=== PATIENT | male | born 1985 | race African-American/Black ===

== ENCOUNTER 2021-05-03 06:52 | Inpatient (IN) | payer OTHER ==
[2021-05-03] VITALS (8 sets, daily range): BP systolic 124–170; BP diastolic 72–91
[~2021-05-03] VITALS: Ht 167.6 cm; Wt 68.0 kg
--- NOTE | 2021-05-03 12:25 | NUR ---
PT ARRIVED TO MED/SURG ROOM 272 IN STABLE CONDITION VIA HOSPITAL BED ACCOMPANIED BY X2 GUARDS AND OR STAFF;BEDSIDE REPORT RECEIVED FROM MASON PERKINS;PT POST OP BILATERAL INGUINAL HERNIA REPAIR 05/03/21.PT A&O X3, ORIENTED TO ROOM AND CALL LIGHT SYSTEM;PT REPORTS ABDOMIAL PAIN RATING 10/10 ON THE PAIN SCALE, PAIN SCALE AND REPORTING EDUCATED.PT TO BE MEDICATED PER EMAR ORDERS;ASSESSMENT COMPLETED;RESPIRATIONS EVEN AND UNLABORED ON O2 @ 2L VIA NC-PT IS NOT HOME DEPENDENT;CLEAR LUNG SOUNDS;I.S. PROVIDED AND PT EDUCATED ON USE, ENCOURAGED USE 10X PER HOUR;ABDOMEN SOFT ON PALPATION AND HYPOACTIVE IN ALL 4 QUADRANTS;DRESSING TO LEFT QUADRANT CDI WITH JEFF DRAIN NOTED, DRAIN EMPTIED OF 40CC OF BLOODY DRAINAGE;DERMABOND INTACT TO RIGHT ABDOMEN;COOK CATHETER PATENT DRAINING PINK URINE TO GRAVITY WITH EASE, STAT LOCK RIGHT THIGH;STRONG PEDAL PULSES,SCD'S PLACED AT THIS TIME;#20G TO RAC INFUSING D5 1/2 NS WITH EASE PER ORDER,SITE APPEARS HEALTHY;FALL AND ALLERGY BAND NOTED TO RIGHT ARM;PT ENCOURAGED TO CALL FOR ASSISTANCE IF NEEDED;FALL PRECAUTIONS IN PLACE WITH BED IN THE LOWEST POSITION AND CALL LIGHT IN REACH;WILL CONTINUE TO MONITOR
--- NOTE | 2021-05-03 13:30 | NUR ---
PT MEDICATED WITH PRN DILAUDID 1MG SLOW IVP FOR ABDOMINAL PAIN RATING 10/10 ON THE PAIN SCALE,WILL CONTINUE TO MONITOR FOR EFFECTIVENESS
--- NOTE | 2021-05-03 15:15 | NUR ---
PT RESTING IN SEMI FOWLERS POSITION WITH X2 GUARDS AT BEDSIDE AND ANKLES SHACKLED TO BED;RESPIRATIONS REMAIN EVEN AND UNLABORED ON O2 @ 2L VIA NC;PT DENIES ANY CURRENT NEEDS;WATER PROVIDED;DRESSING TO LEFT ABDOMEN CDI AND JEFF DRAIN EMPTIED OF 50CC OF BLOODY DRAINAGE;IV SITE PATENT INFUSING D5 1/2 NS WITH EASE PER ORDER;COOK CATHETER DRAINING TO GRAVITY WITH EASE;ENCOURAGED TO CALL FOR ASSISTANCE IF NEEDED;CALL LIGHT IN REACH;WILL CONTINUE TO MONITOR
--- NOTE | 2021-05-03 20:10 | NUR ---
PATIENT IN BED, SEMI FOWLERS POSITION. CURRENTLY ON ROOM AIR. O2 AVAILABLE PRN IF NEEDED. HR REGULAR. VAD @20 RAC INFUSING IVF ORDERED. C/O LOWER ABDOMINAL PAIN ADDRESSED WITH PRN AND SCHEDULED PAIN MEDICATION WITH POSITIVE EFFECT. COOK CATHETER IN PLACE DRAINING PINKISH RED URINE TO GRAVITY. JEFF DRAIN TO LLQ D/T S/P BILATERAL INGUINAL HERNIA REPAIR. SANGUENOUS FLUID 50CC EMPTIED. DRESSING TO LOWER ABDOMEN CLEAN DRY AND INTACT. DERMABOND TO OTHER INCISION AREA INTACT. 2 GUARDS AT BEDSIDE D/T PATIENT FROM D[facility]. RIGHT ANKLE SHAKLED TO BED. BED IN LOW POSITION. CALL LIGHT WITHIN REACH.
--- NOTE | 2021-05-04 00:20 | NUR ---
PATIENT RESTING IN BED. C/O PAIN ADDRESSED WITH PRN AND SCHEDULED PAIN MEDICATION WITH POSITIVE EFFECT. 50 CC OUT SANGUENOUS FLUID FROM JEFF DRAIN. BED IN LOW POSITION. CALL LIGHT WITHIN REACH.
[2021-05-04 00:30] VITALS: BP 115/66
--- NOTE | 2021-05-04 04:30 | NUR ---
RESTING QUIETLY IN BED. 55CC SANGUENOUS FLUID OUT FROM JEFF DRAIN.
[2021-05-04 05:01] VITALS: BP 129/79
[2021-05-04 05:03] LABS: ALBUMIN 3.2 g/dL (3.2-5.0); ALKALINE PHOSPHATASE 40 u/l (38-126); ANION GAP 9 (6-22 (CALC)); BILIRUBIN, TOTAL 0.6 mg/dL (0.0-1.4); BUN 12 mg/dL (9-20); BUN/CREATININE RATIO 11 (12-20 (CALC)); CARBON DIOXIDE 28 mmol/l (22-30); CHLORIDE 102 mmol/l (95-108); CREATININE 1.2 mg/dL (0.7-1.3); GFR > 60 ML/MIN (>=60 (CALC)); GFR FOR AFR.AMER. > 60 ML/MIN (>=60 (CALC)); SGOT/AST 26 u/l (17-59); SODIUM 135 mmol/l (137-146); TOTAL PROTEIN 5.9 g/dL (6.3-8.2)
[2021-05-04 07:18] VITALS: BP 125/72
--- NOTE | 2021-05-04 08:00 | NUR ---
PT IN BED WHEN ENTERED ROOM. TWO GUARDS AT BEDSIDE. PT IS ALERT AND ORIENTED. VITALS AND ASSESSMENT COMPLETED. S1 AND S2 HEARD. LUNG SOUNDS CLEAR. BOWEL SOUNDS ACTIVE IN ALL 4 QUADRANTS. PEDAL PULSES EQUALLY STRONG BILATERALLY. COOK CATHETER DRAINING VIA GRAVITY. JEFF DRAIN INTACT AND SUCTIONING. IV PATENT AND HEALTHY. NO DISTRESS NOTED. CALL LIGHT WITHIN REACH.
--- NOTE | 2021-05-04 08:59 | NUR ---
DR HARRIS AT BEDSIDE DISCUSSING POC
[2021-05-04 11:09] VITALS: BP 124/74
--- NOTE | 2021-05-04 12:00 | NUR ---
PT LAYING IN BED. GUARDS X2 IN ROOM. NO DISTRESS NOTED. CALL LIGHT WITHIN REACH.
--- NOTE | 2021-05-04 14:39 | NUR ---
PT IN BED WHEN ENTERED ROOM. TWO GUARDS IN ROOM WITH PT. PT IS ALERT AND ORIENTED. S1 AND S2 HEARD. LUNGS CLEAR. BOWEL SOUNDS ACTIVE IN ALL 4 QUADRANTS. COOK DRAINING VIA GRAVITY. PEDAL PULSES EQUALLY STRONG BILATERALLY. IV PATENT AND HEALTHY. NO DISTRESS NOTED. CALL LIGHT WITHIN REACH.
[2021-05-04 14:55] VITALS: BP 121/73
--- NOTE | 2021-05-04 16:00 | NUR ---
PT LAYING IN BED. GUARDS X2 IN ROOM. NO DISTRESS NOTED. CALL LIGHT WITHIN REACH.
[2021-05-04 19:00] VITALS: BP 123/71
--- NOTE | 2021-05-04 21:00 | NUR ---
PATIENT IS ALERT AND ORIENTED X3. ABLE TO MAKE NEEDS KNOWN. RESPIRATIONS EVEN AND UNLABORED. PATIENT REPORTS BETIRED. HR REGULAR. BS HYPOACTIVE X4. DRESSING TO LEFT LOWER ABDOMEN. DERMABOND SITES INTACT. JEFF DRAIN TO LEFT ABD WITH SMALL AMOUNT OF SEROSANGUENOUSFLUID NOTED. COOK CATHETER DRAINING RED COLORED URINE TO GRAVITY. VAD #20 RAC INFUSING D5 1/2 NS @ 125 ML/HR. C/O PAIN ADDRESSED WITH SCHEDULED AND PRN PAIN MEDICATION WITH POSITIVE EFFECT. PEDAL PULSES +2 B/L. 2 GUARDS AT BEDSIDE. RIGHT ANKLE SHACKLED TO THE BED. BED IN LOW POSITION. CALL LIGHT WITHIN REACH.
--- NOTE | 2021-05-05 02:03 | NUR ---
RESTING WITH EYES CLOSED. RESPIRATIONS SLOW AND REGULAR. GUARDS AT BEDSIDE.
[2021-05-05 03:44] VITALS: BP 126/86
--- NOTE | 2021-05-05 04:25 | NUR ---
NO CHANGES NOTED. 2 GUARDS AT BEDSIDE.
--- NOTE | 2021-05-05 07:00 | NUR ---
PT REPORT RECEIVED FROM NIGHT NURSEJERRY
--- NOTE | 2021-05-05 08:00 | NUR ---
PT WAS FOUND RESTING IN BED IN SEMI-GRAVES'S POSITION;PT IS A&OX4;VS AND ASSESSMENT WERE COMPLETED;PT HAS 2 GUARDS PRESENT AT BEDSIDE AND IS CURRENTLY SHACKLED ON THE RT LEG;HEART SOUNDS ARE REGULAR IN RATE AND RHYTHM;LUNG SOUNDS ARE CLEAR;RESPIRATIONS ARE EVEN AND UNLABORED ON RA;PT IS POST-OP DAY 2;DRESSING IN PLACE TO LL ABDOMEN IS CDI;DERMABOND SITES ARE INTACT;PT HAS A JEFF DRAIN IN PLACE IN THE LL ABDOMEN WITH 30CC SEROSANGENOUS OUTPUT NOTED;PT HAS A COOK IN PLACE DRAINING PLATT RED URINE AT THIS TIME;#20G IV IN RAC IS RUNNING D5 1/2NS @100ML/HR AT THIS TIME;IV SITE IS PATENT AND APPEARS FREE OF COMPLICATIONS AT THIS TIME;SAFETY PRECAUTIONS IN PLACE;CALL LIGHT WITHIN REACH;PT ENCOURAGED TO CALL WITH ANY NEEDS OR CONCERNS;WILL CONTINUE TO MONITOR.
--- NOTE | 2021-05-05 08:00 | NUR ---
PT HAS REMOVED OXYGEN AT THIS TIME;PT O2 SATS ARE STEADY @99%ON RA;WILL CONTINUE TO MONITOR.
[2021-05-05 08:30] VITALS: BP 118/68
--- NOTE | 2021-05-05 12:00 | NUR ---
PT IS RESTING IN BED WITH 2 GUARDS PRESENT AT BEDSIDE AND CURRENTLY HAS SHACKLES PRESENT ON RT LEG;PT HAS SCDS IN PLACE ON BOTH LEGS;COOK IS DRAINING PLATT RED URINE AT THIS TIME;SAFETY PRECAUTIONS IN PLACE;CALL LIGHT WITHIN REACH;WILL CONTINUE TO MONITOR.
[2021-05-05 16:00] VITALS: BP 142/82
--- NOTE | 2021-05-05 16:00 | NUR ---
PT WAS FOUND RESTING IN BED WITH 2 GUARDS PRESENT AT BEDSIDE;PT STILL CURRENTLY IN SHACKLES ON RT ANKLE;SCDS IN PLACE;COOK IN PLACE DRAINING PLATT RED URINE;#20G IV IN RAC IS RUNNING D5 1/2NS@100 ML/HR;IV SITE APPEARS FREE OF COMPLICATIONS AT THIS TIME;SAFETY PRECAUTIONS IN PLACE;CALL LIGHT WITHIN REACH;WILL CONTINUE TO MONITOR.
--- NOTE | 2021-05-05 18:13 | NUR ---
DRESSING TO LLQ OF ABD CHANGED AT THIS TIME. GUAZE, ABD AND PAPER TAPE APPLIED. PT TOLERATED WELL. JEFF DRAIN TO LLQ REMAINS IN PLACE. BLOODY DRAINAGE NOTED. DRESSING REMAINS CDI.
[2021-05-05 18:38] VITALS: BP 132/78
--- NOTE | 2021-05-05 20:00 | NUR ---
Received Pt from day shift. Status post surgery. Assesment documented. Vitals signs are stable. Pain medication gave per doctor order (See Emar), Oriented and educated about plan of care, pain management, medications, falls and infection precautions.
--- NOTE | 2021-05-06 | NUR ---
Hourly rounding. PRN pain medications gave per doctor order, (See Emar. Re-educated PT about pain management and pain medications.
[2021-05-06 04:00] VITALS: BP 108/73
--- NOTE | 2021-05-06 04:14 | NUR ---
Hourly roundind. Pain re-assesment documented. (See Emar) Re-educated PT about pain management and plan of care.
[2021-05-06 05:39] LABS: HEMATOCRIT 30.4 % (39.0-50.0); HEMOGLOBIN 9.9 g/dl (14.0-18.0); MEAN CELL VOLUME 98.1 fL CALC (80.0-100.0); MEAN CORPUSCULAR HGB 31.9 pG CALC (26.0-32.0); MEAN CORPUSCULAR HGB CONC 32.6 g/dL CAL (32.0-36.0); RED BLOOD COUNT 3.1 mill/uL (4.70-6.10); RED CELL DISTRI WIDTH 12.5 % (11.5-15.5)
[2021-05-06 05:43] LABS: ANION GAP 9 (6-22 (CALC)); BUN 8 mg/dL (9-20); BUN/CREATININE RATIO 9 (12-20 (CALC)); CARBON DIOXIDE 28 mmol/l (22-30); CHLORIDE 102 mmol/l (95-108); CREATININE 0.9 mg/dL (0.7-1.3); GFR > 60 ML/MIN (>=60 (CALC)); GFR FOR AFR.AMER. > 60 ML/MIN (>=60 (CALC)); POTASSIUM 3.4 mmol/l (3.5-5.1); SODIUM 136 mmol/l (137-146)
--- NOTE | 2021-05-06 07:00 | NUR ---
PT REPORT RECEIVED FROM NIGHT NURSEIDA
--- NOTE | 2021-05-06 08:00 | NUR ---
PT WAS FOUND RESTING IN BED IN SEMI-GRAVES'S POSITION;PT IS A&OX3;VS AND ASSESSMENT WERE COMPLETED;PT HAS 2 GUARDS PRESENT AT BEDSIDE AND IS CURRENTLY SHACKLED ON THE RT LEG;HEART SOUNDS ARE REGULAR IN RATE AND RHYTHM;LUNG SOUNDS ARE CLEAR;RESPIRATIONS ARE EVEN AND UNLABORED ON RA;PT IS POST-OP DAY 3;DRESSING IN PLACE TO LL ABDOMEN IS CDI;DERMABOND SITES ARE INTACT;PT HAS A JEFF DRAIN IN PLACE IN THE LL ABDOMEN;PT HAS A COOK IN PLACE DRAINING ORDNANCE EQUIPMENT WORKER PLATT RED URINE AT THIS TIME;#20G IV IN RAC IS RUNNING D51/2 NS @100ML/HR;IV SITE IS PATENT AND APPEARS FREE OF COMPLICATIONS AT THIS TIME;SAFETY PRECAUTIONS IN PLACE;CALL LIGHT WITHIN REACH;PT ENCOURAGED TO CALL WITH ANY NEEDS OR CONCERNS;WILL CONTINUE TO MONITOR.
--- NOTE | 2021-05-06 10:00 | NUR ---
AND TELMA MEDINA AT BEDSIDE DISCUSSING POC WITH PT
--- NOTE | 2021-05-06 12:00 | NUR ---
PT WAS FOUND RESTING IN BED EATING LUNCH;COOK IN PLACE;JEFF DRAIN PATENT;35CC OF SEROSANGENOUS DRAINAGE WAS DRAINED EARLIER THIS AM;2 GUARDS PRESENT AT BEDSIDE WITH PT REMAINING IN A RT FOOT SHACKLE;SAFETY PRECAUTIONS IN PLACE;CALL LIGHT WITHIN REACH;WILL CONTINUE TO MONITOR.
[2021-05-06 15:32] VITALS: BP 136/80
--- NOTE | 2021-05-06 16:00 | NUR ---
PT WAS FOUND SLEEPING IN BED;2 GUARDS PRESENT AT BEDSIDE WITH SHACKLE STILL IN PLACE;SCDS IN PLACE;#20G IV IN RAC IS SL AND APPEARS FREE OF COMPLICATIONS;SAFETY PRECAUTIONS IN PLACE;CALL LIGHT WITHIN REACH;WILL CONTINUE TO MONITOR.
--- NOTE | 2021-05-06 20:00 | NUR ---
RECEIVED REPORT FROM MS.DIVA CUEVAS. PT ORIENTED TO PERSON, TIME AND PLACE, ALERT AND AWAKE. VITALS SIGNS ARE STABLE. ASSESMENT DOCUMENTED. PER PT COMPLAINT FLUSHED COOK CATHETER WITH NSS FLUSH, NO LEAKS, BLOOD CLOTS OR COMPLICATIONS NOTED. PT REFERRED REDUCED PRESSURE FROM HIS BLADDEN AND PAIN. MEDICATIONS GAVE (SEE EMAR)
[2021-05-06 21:16] VITALS: BP 121/80
--- NOTE | 2021-05-07 00:34 | NUR ---
HOURLY ROUNDING, PT REFUSED ANY PAIN AT THIS TIME. COOK CATHETER IN PLACE NO COMPLICATIONS NOTED. VITAL SIGNS ARE STABLE. PT OBSERVED CALM AND SLEEP
--- NOTE | 2021-05-07 04:17 | NUR ---
HOURLY ROUNDING. PT REFUSES PAIN AT THIS ITME. DRESSING CHANGED. EDUCATED ABOUT INFECTIONS AND FALLS PRECAUTION AND PAIN MANAGEMENT.
[2021-05-07 04:33] VITALS: BP 109/69
[2021-05-07 07:10] VITALS: BP 119/65
--- NOTE | 2021-05-07 07:10 | NUR ---
PATIENT LAYING IN BED AT THIS TIME. SCD ON AND PATIENT DENIES ANY PAIN. PATIENT HAS JEFF DRAIN ON LEFT SIDE OF ABDOMIN DRAINING BLOODY DRAINAGE AT THIS TIME. ABDOMINAL DRESSING DRY AND INTACT COOK PRESENT AND DRAINING YELLOW URINE AT THIS TIME. PATIENT IS SCACKELED TO BED AT ANKLES AND NO BLOOD FLOW OCCULSION NOTED. PEDAL PULSES ARE STRONG. TWO GUARDS ARE AT BEDSIDE AT THIS TIME. SIDERAILS ARE UP X 2 CALL LIGHT AND PERSONAL ITEMS WITHIN REACH.
--- NOTE | 2021-05-07 09:30 | NUR ---
PER DR. HOWARD PLACED A LEG URINARY BAG ON ZBIGNIEW AT THIS TIME. PATIENT BEGAN TO COMPLAIN THAT THE URINARY BAG WAS HURTING AND TO TAKE IT OFF. PATIENT EDUCATED THAT THE ONLY THING THAT HAS CHANGE WITH THE CATHERTER IS THE BAG. PATINET COMPLAINED IT HURT, CATH FLUSHED AND NO OBSTRUCTION NOTED YELLOW URINE FLOWING WTTHOUT DIFFICULTY. PATIENT YELLING THAT IT HURTS DOWN THERE TAKE THE BAG OFF. AT THIS TIME PATIENT URAINARY BAG CHANGE TO STANDARD URINARY BAG AND URINE NOTED TO BE FLOWING FREELY. PATIENT ADVISED AT THIS TIME THAT HE WOULD BE GETTING UP TO CHAIR AND WALK AROUND TODAY. PATIENT STATED I DON'T WANT TO GET UP. PATIENT EDUCATED ON IMPORTANCE OF GETTING UP AND MOVING TO INCREASE BOWEL MOTILITY. PATIENT REQUESTING SOMETHING FOR PAIN AT THIS TIME.
--- NOTE | 2021-05-07 10:07 | NUR ---
PATINET GIVEN 0XYCODONE 5/325MG FOR PAIN AT THIS TIME FOR PAIN OF 6 ON SCALE OF 0-10. PATIENT STATED HIS PAIN IS IN HIS PENIS AND IT IS THROBBING. WILL CONTINUE TO MONITOR.
--- NOTE | 2021-05-07 10:15 | NUR ---
PATIENT LAYING IN BED THRASING AROUND STATING "WHAT DID YOU DO TO ME". WHEN ASK WHAT HE WAS REFERRING TO PATIENT STATED SINCE YOU CAME IN HERE MY HAND ARE LOCKED UP UPON EXAMING HANDS PATIENT'S MOVING HANDS WITHOUT DIFFICULTY AT THIS TIME. CIRCULATION CHECK NAIL BEDS HAS QUICK BLOOD FLOW RETURN PATIENT MOVING ALL FINGERS AND HANDS WITHOUT DIFFICULTY. PATIENT YELLING OUT "YOU DID SOMETHING TO ME" PATIENT ADVISED THE ONLY THING THAT HAS BEEN CHANGED IS HE RECEIVED A NEW URINARY BAG AND PAIN MEDICATION AT THIS TIME. PATIENT ADVISED THAT THIS NURSE WILL CONTACT SUPERVISION AND HAVE THE MATERIAL DISPOSITION INSPECTOR COME CHECK PATIENT OVER. NAMAN HIRSCH CLOTH BLEACHING SUPERVISOR AND JOSE REED NOTIFIED.
--- NOTE | 2021-05-07 12:00 | NUR ---
PATIENT LAYING IN BED AT THIS TIME. PATIENT STATE "I APOLOGIZE FOR MY EARILER BEHAVIOR" PATIENT RESTING EATING LUNCH COOK DRAINNG CLEAR YELLOW URINE AT THIS TIME. DR. ROMO IN TO SEE PATIENT AT THIS TIME.
--- NOTE | 2021-05-07 13:38 | NUR ---
MEDICATED PATIENT FOR PAIN IN ABDOMEN AT THIS TIME WITH OXYCODONE 5/325MG AT THIS TIME. PATIENT STATED PAIN LEVEL IS A 4 AT THIS TIME OUT OF A PAIN SCALE OF 0-10. PATIENT EDUCATED ON JEFF DRAIN REMOVAL AT THIS TIME AND PATIENT VERBALIZES UNDERSTANDING.
--- NOTE | 2021-05-07 14:30 | NUR ---
JEFF DRAIN PULLED AT THIS TIME PATIENT TOLERATED PROCEEDURE WELL. AREA CLEANED AND DRESSED WITH TELFA PAD AND TEGADERM AT THIS TIME. ABDOMINAL DRESSING CHANGED DERMABOND SITED (3) ARE INTACT UMBILICAL SITE HAS SMALL CLEAR DRAINAGE NOTED AND TELFA PAD AND TEGADERM PLACED AT THIS TIME.
[2021-05-07 15:37] LABS: HEMATOCRIT 31.9 % (39.0-50.0); HEMOGLOBIN 10.6 g/dl (14.0-18.0); MEAN CELL VOLUME 97.3 fL CALC (80.0-100.0); MEAN CORPUSCULAR HGB 32.3 pG CALC (26.0-32.0); MEAN CORPUSCULAR HGB CONC 33.2 g/dL CAL (32.0-36.0); NEUT# 3.72 thou/uL (1.82-7.42); RED BLOOD COUNT 3.28 mill/uL (4.70-6.10); RED CELL DISTRI WIDTH 12.6 % (11.5-15.5)
[2021-05-07 15:50] LABS: ALBUMIN 3.4 g/dL (3.2-5.0); ALKALINE PHOSPHATASE 47 u/l (38-126); ANION GAP 12 (6-22 (CALC)); BILIRUBIN, TOTAL 0.2 mg/dL (0.0-1.4); BUN 16 mg/dL (9-20); BUN/CREATININE RATIO 16 (12-20 (CALC)); CARBON DIOXIDE 29 mmol/l (22-30); CHLORIDE 100 mmol/l (95-108); GFR > 60 ML/MIN (>=60 (CALC)); GFR FOR AFR.AMER. > 60 ML/MIN (>=60 (CALC)); POTASSIUM 3.6 mmol/l (3.5-5.1); SGOT/AST 21 u/l (17-59); SODIUM 138 mmol/l (137-146); TOTAL PROTEIN 6.5 g/dL (6.3-8.2)
--- NOTE | 2021-05-07 16:00 | NUR ---
PATIENT RESTING IN BED AT THIS TIME DENEIS ANY NEED AND PERSONAL ITEMS AND CALL LIGHT WITHIN REACH. PATIENT STATED HIS PAIN IS A 2 CURRENTLY AT THIS TIME.
--- NOTE | 2021-05-07 17:54 | NUR ---
PATIETN UP IN CHAIR AT THIS TIME. PATIENT C/O PAIN IN ABDOMIN AREA AND STATES ITS A 5 OUT OF 10 OXYCODONE 5/325MG GIVEN AT THIS TIME. WILL CONTINUE TO MONITOR.
[2021-05-07 18:49] VITALS: BP 112/69
[2021-05-07 19:48] VITALS: BP 132/78
--- NOTE | 2021-05-07 20:25 | NUR ---
PHYSICAL ASSESMENT COMPLETE. PT CURRENTLY DENIES PAIN OR DISCOMFORT. SCHEDULED MEDICATIONS AND PRN MEDICATION ADMINISTERED, SEE E-MAR. PT DENIES ANY NEEDS AT THIS TIME. PLAN OF CARE REVIEWED, PT DENIES QUESTIONS, VERBALIZES UNDERSTANDING. 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 VERIFIED CIRCULATION AROUND SHACKLE. ITEMS WITHIN REACH, BED LOCKED IN LOW POSITION W/ BEDRAILS UP X2. CALL ALMANZA WITHIN REACH, AGREES TO CALL PRN.
--- NOTE | 2021-05-08 00:07 | NUR ---
PT LAYING IN BED WITH EYES CLOSED, APPEARS TO BE SLEEPING, APPEARS COMFORTABLE AND IN NO DISTRESS. RESPIRATIONS REGULAR AND UNLABORED. PT IS SHACKLED TO THE BED WITH GOOD CIRCULATION. 2 GUARDS ARE PRESENT AT BEDSIDE. ITEMS REMAIN WITHIN REACH, CALL ALMANZA REMAINS WITHIN REACH. BED REMAINS LOCKED AND IN LOW POSITION WITH BEDRAILS UP X2. WILL CONTINUE TO MONITOR.
--- NOTE | 2021-05-08 04:08 | NUR ---
PT RESTING IN BED, NO SIGNS OF DISTRESS NOTED, RESP EVEN AND UNLABORED. PT VOICES NO NEEDS OR COMPLAINTS AT THIS TIME. CALL LIGHT IN REACH, CONTINUE TO MONITOR.
[2021-05-08 05:13] VITALS: BP 117/81
--- NOTE | 2021-05-08 07:00 | NUR ---
SHIFT CHANGE REPORT, PT AWAKE ALERT AND ORIENTED LYING IN SUPINE POSITION AND SHACKLED TO BED, C/O ABD PAIN @ 7/10, INCISION X 4 TO ABD WELL APPROXIMATED WITH DERMABOND AND 2X2, PAIN CONCERN ADDRESSED, CALL ALMANZA IN REACH AND BED LOCKED IN LOWEST POSITION.
[2021-05-08 08:09] VITALS: BP 134/87
[2021-05-08] MEDS ORDERED: TAMSULOSIN HCL0.4 MG PO (09:53)
[2021-05-08] MEDS ORDERED: TORADOL PO (09:54)
--- NOTE | 2021-05-08 12:00 | NUR ---
RELAXING IN BED AFTER HAVING MEAL, ALL NEEDS ADDRESSED, GUARDS AT BEDSIDE
[2021-05-08 14:50] VITALS: BP 122/85
--- NOTE | 2021-05-08 15:00 | NUR ---
AT 1500 PT IN BR WITH MANAGER HEALTH ASSISTING AND REPORTING EXCRUCIATING PAIN TO LOWER ABD AND PENIS STATING PENIS WAS SWOLEN AND CATHETER WAS NOT DRAINING, HE WAS WRITHING AND GROANIND IN REPORTED PAIN AND CALLING ATTENTION TO HIS CATHETER WHICH HE STATED WAS NOT FLOWING. ON ASSESSMENT CATHETER WAS FOUND TO BE DRAINING FREELY, BLADDER WAS SCANNED WHICH SHOWED 00ML URINE, PT WAS INFORMED HIS PAIN WAS POSSIBLY FROM CONSTIPATION AND ALSO POST SURGICAL BUT HE INSISTED THAT WAS NOT THE CASE. GUARDS IN ROOM BECAME ANXIOUS/CONCERNED REPORTINGTHEY COULD NOT TRANSPORT PT IN THAT CONDITION THEY THINK HE WILL NEED MEDICAL INTERVENTION AND THEY WERE NOT EQUIPPED WITH THOSE SKILL. THEY WERE ADVISED MD HAD EVALUATED AND THOUGHT IT WAS APPROPRIATE TO D/C PT AND THAT KEEPING PT HERE TO CONTROL PAIN AND CONSTIPATION WAS NOT CRITERION FOR DELAYING D/C AND ALSO BOTH PT AND STAFF WOULD BE AT HIGHER RISK FOR STEWART INFECTION. NURSE MARTINEZ AT FACILITY WAS NOTIFIED OF D/C ORDERS.
--- NOTE | 2021-05-08 16:47 | NUR ---
Discharge instructions given. Patient verbalizes understanding of same. [facility]. All belongings sent with pt.
== END 2021-05-08 16:34 | DRG 909 ==
LOC: ORM 06:52 → MS2 10:30 → ORM 05-04 08:42 → MS2 05-04 08:43
PROVIDERS: Hospitalist; ADMIT Surgery; ATTEND Surgery
PROC: 0TQB0ZZ Repair Bladder, Open Approach (ICD-10-PCS; principal; 2021-05-03)
PROC: 0YUA4JZ Supplement Bilateral Inguinal Region with Synthetic Substitute, Percutaneous Endoscopic Approach (ICD-10-PCS; 2021-05-03)
PROC: 0VBF4ZZ Excision of Right Spermatic Cord, Percutaneous Endoscopic Approach (ICD-10-PCS; 2021-05-03)
PROC: BT00ZZZ Plain Radiography of Bladder (ICD-10-PCS; 2021-05-08)
DX: N99.72 Accidental puncture and laceration of a genitourinary system organ or structure during other procedure (principal); K40.20 Bilateral inguinal hernia, without obstruction or gangrene, not specified as recurrent; D17.6 Benign lipomatous neoplasm of spermatic cord; Y83.2 Surgical operation with anastomosis, bypass or graft as the cause of abnormal reaction of the patient, or of later complication, without mention of misadventure at the time of the procedure; Y92.234 Operating room of hospital as the place of occurrence of the external cause
CPT/HCPCS: C1781; J2710